=== PATIENT | female | born 1950 | race Caucasian/White ===

== ENCOUNTER 2021-04-21 05:29 | Day surgery (SDC) | payer MEDICARE, BC ==
[~2021-04-21 05:29] MED LIST: Dextrose 5%-0.45% NaCl 1,000 ML IV SCH; Sodium Chloride 0.9% 10 ML Syringe FLUSH PRN
[2021-04-21] MEDS ORDERED: fentaNYL 100 MCG/2 ML SDV IV ONE ×4 (05:30→06:54)
[2021-04-21] MEDS ORDERED: Midazolam 1 MG/ML 2 ML SDV IV ONE ×7 (05:30→06:50)
[2021-04-21] MEDS ORDERED: Midazolam 1 MG/ML 2 ML SDV ONE (05:37)
[2021-04-21] MEDS ORDERED: fentaNYL 100 MCG/2 ML SDV ONE (05:38)
--- NOTE | 2021-04-21 07:44 | OR ---
DATE: 04/21/2021 PROCEDURE: Total colonoscopy. INSTRUMENT USED: [id number]-H190DL Olympus video colonoscope. PREMEDICATIONS: Fentanyl 125 mcg intravenous, Versed 4 mg intravenous. Nasal O2 cannula. The procedure was done under pulse oximetry, BP recording, and quality assurance monitor final. INDICATION: Screening colonoscopic examination is done for detection of any polypoid lesions and removal, endoscopic hemostasis therapy if needed. DESCRIPTION OF PROCEDURE: Initial rectal exam was unremarkable. Rigid anoscopy was normal. The colonoscope was passed with ease. Numerous scattered diverticula were noted in the distal left colon along with deformity. The scope was passed with ease up to the ileocecal area. Photographs were taken of the normal appearing cecum, identified by landmarks of appendiceal orifice and double bulged ileocecal folds. No bleeding was noted from any of the visualized areas at the commencement of the examination. The bowel preparation was found to be adequate, [place] scale 3 in right and transverse colon, 2 in left colon, total score 8. No stricture. No vascular ectasia. No large isolated ulcerations seen. No evidence of diffuse inflammatory bowel disease in the form of friability, contact bleeding, or ulcerations. No polyp or tumor mass identified. Probing the proximal sides of folds and flexures using adequate distention and clearing up the stool material, withdrawal of the scope was made, cecum to rectum time over 6 minutes. No bleeding was noted from any of the visualized areas at the completion of examination. IMPRESSION: Diverticulosis. The patient tolerated the procedure well. [facility] /[id number]
== END 2021-04-21 09:06 | disposition home or self-care (01) ==
LOC: DL.ENDO 05:29
PROVIDERS: ATTEND Internal Medicine Gastroenterology
DX: Z12.11 Encounter for screening for malignant neoplasm of colon (principal); K57.30 Diverticulosis of large intestine without perforation or abscess without bleeding; E66.09 Other obesity due to excess calories; E11.9 Type 2 diabetes mellitus without complications; E78.5 Hyperlipidemia, unspecified; M85.80 Other specified disorders of bone density and structure, unspecified site; K21.9 Gastro-esophageal reflux disease without esophagitis; N39.0 Urinary tract infection, site not specified; D69.6 Thrombocytopenia, unspecified; Z88.0 Allergy status to penicillin; Z90.49 Acquired absence of other specified parts of digestive tract; Z98.890 Other specified postprocedural states; Z87.891 Personal history of nicotine dependence; Z68.26 Body mass index [BMI] 26.0-26.9, adult
CPT/HCPCS: G0121; J2250; J3010; J7042

== ENCOUNTER 2023-08-18 11:16 | Emergency (ER) | payer MEDICARE, BC ==
[2023-08-18] MEDS: Dexamethasone 4 MG/ML SDV IVPUSH ONE (11:30)
[2023-08-18] MEDS: diphenhydrAMINE 50 MG/ML SDV IVPUSH ONE (11:30)
== END 2023-08-18 12:30 | disposition home or self-care (01) ==
LOC: DL.ED 11:16
DX: T78.40XA Allergy, unspecified, initial encounter (principal); I12.9 Hypertensive chronic kidney disease with stage 1 through stage 4 chronic kidney disease, or unspecified chronic kidney disease; E78.00 Pure hypercholesterolemia, unspecified; K21.9 Gastro-esophageal reflux disease without esophagitis; E11.9 Type 2 diabetes mellitus without complications; E66.9 Obesity, unspecified; N18.9 Chronic kidney disease, unspecified; M13.80 Other specified arthritis, unspecified site; Z68.21 Body mass index [BMI] 21.0-21.9, adult; Z79.82 Long term (current) use of aspirin; Z79.84 Long term (current) use of oral hypoglycemic drugs; Z79.899 Other long term (current) drug therapy; Z88.0 Allergy status to penicillin; Z90.49 Acquired absence of other specified parts of digestive tract
CPT/HCPCS: 96374; 96375; 99283; J1100; J1200